=== PATIENT | female | born 1960 | race Caucasian/White ===

== ENCOUNTER 2016-11-17 10:37 | Day surgery (SDC) | payer BC ==
[~2016-11-17] VITALS: Ht 157.5 cm; Wt 47.2 kg
[~2016-11-17 10:37] MED LIST: KLONOPIN1 MG PO; LEXAPRO20 MG PO; TAMOXIFEN CITRA20 MG PO; ULTRAM50 MG PO
[2016-11-17 12:42] LABS: BASOPHILS 0.4 % (0.0-2.0); EOSINOPHILS 1.1 % (0-7); HEMATOCRIT 46.8 % (36.0-48.0); HEMOGLOBIN 16.5 g/dL (12-16); IMMATURE GRANULOCYTES 0.3 % (0-5); LYMPHOCYTES 30.2 % (15-50); MCH 33.1 pg (26.0-34.0); MCHC 35.3 g/dL (31.0-37.0); MCV 93.8 fL (80.0-100.0); MEAN PLATELET VOLUME 9.9 fL (7.4-10.4); MONOCYTES 7.7 % (2-11); NEUTROPHILS 60.3 % (40-80); PLATELET COUNT 198 10x3/uL (130-400); RBC 4.99 10x6/uL (4.00-5.40); WBC 7.5 10x3/uL (4.8-10.8)
[2016-11-17] MEDS ORDERED: KEFLEX250 MG (12:45)
[2016-11-17 12:46] LABS: CALC OSMOLALITY 283 mosm/kg (275-300); CALCIUM 9.2 mg/dL (8.5-10.1); CARBON DIOXIDE 28.3 mmol/L (21.0-32.0); CHLORIDE - SERUM 106 mmol/L (98-107); CREATININE - SERUM 0.8 mg/dL (0.6-1.3); GLUCOSE 99 mg/dL (74-106); SODIUM 143 mmol/L (136-145); UREA NITROGEN 11 mg/dL (7-18); eGFR NON AFRICAN AMERICAN 78 mL/min (90-120)
[2016-11-17 12:52] VITALS: BP 114/66; Ht 157.5 cm; Wt 47.2 kg
--- NOTE | 2016-11-17 16:15 | NUR ---
DISCHARGE INSTRUCTIONS REVIEWED WITH PATIENT, PATIENT CONTINUES AWAITING TRANSPORTATION, LYING IN BED, LOOKING AT PHONE, DENIES COMPLAINTS, PATIENT WILL CALL FOR NURSE WHEN TRANSPORTATION HAS ARRIVED
--- NOTE | 2016-11-17 17:05 | NUR ---
DISCHARGED HOME VIA WHEELCHAIR TO PRIVATE VEHICLE WITH FRIEND
--- NOTE | 2016-11-18 10:50 | OP ---
PATIENT NAME: LAINE HAMMER MEDICAL RECORD: [id number] :56 LOCATION:D[facility] ADMISSION DATE: SURGEON: EDWIN SU DO DATE OF OPERATION: 11/17/2016 PROCEDURE: EGD with biopsies. SCOPE: Olympus video gastroscope. MEDICATIONS: Propofol 150 mg IV per anesthesia. INDICATIONS FOR PROCEDURE: Dysphagia, pain provoked by eating, abnormal weight loss. FINDINGS: Informed consent was given. The patient was made comfortable with the above medication. After reaching an adequate level of sedation by slow IV push, the patient was placed on her left side. The endoscope was then advanced under direct visualization through the mouth to the second portion of the duodenum. The upper, middle and distal thirds of the esophagus appeared normal. At the GE junction, there was some evidence of mild LA class A reflux induced esophagitis. Scope was advanced through the GE junction into the stomach and retroflexed to view a small sliding hiatal hernia involving the cardia of the stomach. The body and fundus of the stomach appeared normal. The antrum appeared normal as well, but as you approached the prepyloric region there was some streaky areas of erythema and granularity consistent with gastritis. Biopsies were taken to rule out H. pylori and to submit for histology. Scope was advanced into the duodenal bulb and second portion of the duodenum, which appeared normal. Scope was withdrawn from the patient. The patient tolerated the procedure well and there were no complications. ESTIMATED BLOOD LOSS: Less than 3 cc. IMPRESSION: 1. Mild reflux esophagitis, grade A. 2. A small 3-cm sliding hiatal hernia was present. 3. Possible gastritis, consisting of erythema and granularity in the prepyloric region, biopsies taken. PLAN AND RECOMMENDATIONS: 1. Discharge home when recovery parameters are met. 2. Reflux precautions. 3. GERD diet. 4. Continue current medications. 5. Trial of Protonix 40 mg daily times 8 weeks. 6. Proceed with colonoscopy as scheduled. 7. Schedule a gastric emptying study regarding the bloating, pain with eating, and early satiety. 8. Consider a barium esophagram after workup of eating and abdominal symptoms. There were no obvious strictures or narrowings areas in the esophagus on this examination, so no interventions were performed. TRANSINT:[id number] Voice Confirmation ID: [id number] DOCUMENT ID: [id number] OPERATIVE REPORT [id number] LAINE HAMMER,EDWIN Corado DO at 1050 CC: [id number] DICTATION DATE: 11/17/16 1441 [employer] REPRESENTATIVE: 11/17/16 2347 [facility] 11/17/16 [place] [id number] [place] [id number]
== END 2016-11-17 17:10 | disposition home or self-care (01) ==
LOC: D.OPS 10:37
PROVIDERS: Anesthesiology
DX: K44.9 Diaphragmatic hernia without obstruction or gangrene (principal); K21.0 Gastro-esophageal reflux disease with esophagitis; I10 Essential (primary) hypertension; R63.4 Abnormal weight loss; R13.10 Dysphagia, unspecified; F17.200 Nicotine dependence, unspecified, uncomplicated

== ENCOUNTER 2016-11-24 08:50 | Day surgery (SDC) | payer BC ==
[~2016-11-24] VITALS: Ht 157.5 cm; Wt 47.3 kg
[~2016-11-24 08:50] MED LIST changes: +KEFLEX250 MG
[2016-11-24] MEDS ORDERED: OMEPRAZOLE20 M1 PO (10:28)
[2016-11-24 10:30] LABS: HEMATOCRIT 49.2 % (36.0-48.0); HEMOGLOBIN 17.2 g/dL (12-16); MCH 32.9 pg (26.0-34.0); MCV 94.1 fL (80.0-100.0); MEAN PLATELET VOLUME 10.3 fL (7.4-10.4); RBC 5.23 10x6/uL (4.00-5.40); RDW 12.7 % (11.5-14.5); WBC 8.6 10x3/uL (4.8-10.8)
[2016-11-24 10:33] VITALS: BP 116/74; Ht 157.5 cm; Wt 47.3 kg
[2016-11-24] MEDS ORDERED: TOPROL XL25 MG PO (10:33)
[2016-11-24] MEDS ORDERED: ANALPRAM HC 2.530 GM RC (13:07)
--- NOTE | 2016-11-24 13:45 | NUR ---
PIV DC'D WITH TIP INTACT. PATIENT STATES SHE'S FEELING MUCH BETTER, LESS PAIN, AND JUST WANTS TO GO HOME. PATIENT DRESSING IN PERSONAL CLOTHING. RX FOR ANALPRAM CALLED IN TO [facility] IN [place], TO NELLY HAN
--- NOTE | 2016-11-24 13:55 | NUR ---
DISCHARGED HOME VIA WHEELCHAIR TO PRIVATE VEHICLE WITH SISTER
[2016-11-24] MEDS ORDERED: LEVSIN/ANASP0.125 MG PO (14:09)
--- NOTE | 2016-11-25 10:00 | OP ---
PATIENT NAME: LAINE HAMMER MEDICAL RECORD: [id number] :56 LOCATION:D.[facility] ADMISSION DATE: SURGEON: EDWIN SU DO DATE OF OPERATION: 11/24/2016 PROCEDURE: Colonoscopy with hot forceps polypectomy and cold forceps biopsy. INDICATIONS: Change in bowel habits, constipation by outlet obstruction, history of colon polyps. SCOPE: Olympus video pediatric colonoscope. MEDICATIONS: Propofol IV per anesthesia. WITHDRAWAL TIME: 16 minutes. ESTIMATED BLOOD LOSS: Less than 3 cc. FINDINGS: Informed consent was given. The patient was made comfortable with the above medication by slow IV push. After reaching an adequate level of sedation, the patient was placed in the left side. A digital rectal examination was performed and found external hemorrhoids. There was no bleeding stigmata associated with this. The endoscope was then advanced under direct visualization through the anus to the terminal ileum. Scope was slowly withdrawn while the mucosa was carefully examined. There was mild diverticulosis of the descending and sigmoid colon. In the descending colon, there was a single benign appearing sessile adenomatous polyp measuring approximately 3-4 mm in size, removed with hot forceps. The polyp was completely retrieved. In the sigmoid colon, there were 3-4 hyperplastic polyps. One was removed with hot forceps and completely retrieved. The other were removed with cold forceps and completely retrieved. All of these measured approximately 2-4 mm. In the rectum, there was a single benign appearing sessile polyp measuring approximately 6 mm in size, which was removed with hot forceps. It was completely retrieved. On retroflexion in the rectum, there were medium sized internal hemorrhoids which were not bleeding. The remainder of the examination was normal. The scope was withdrawn from the patient. The patient tolerated the procedure well and there were no complications. IMPRESSION: 1. Small to medium size internal and external hemorrhoids without bleeding stigmata and no active bleeding. 2. Few benign-appearing sessile polyps in the descending, sigmoid, and rectum. These were removed with the combination of hot forceps and cold forceps polypectomy. 3. Mild diverticulosis of the descending and sigmoid colon. PLAN AND RECOMMENDATIONS: 1. Discharge home when recovery parameters are met. 2. High fiber diet. 3. Consider supplementing diet with fiber 1-2 tablespoons daily. 4. Continue MiraLax as needed for constipation. 5. We will give a script for Levsin 0.125 mg q.6 hours p.r.n. loose stools or abdominal pain. 6. Recall colonoscopy will be dependent on pathology results. 7. Follow up in GI clinic as needed. OPERATIVE REPORT [id number] HARMANLAINEJUANI JESSICA TRANSINT:[id number] Voice Confirmation ID: [id number] DOCUMENT ID: [id number] EDWIN SU DO at 1000 CC: [id number] DICTATION DATE: 11/24/16 1235 INTAKE SPECIALIST: 11/24/16 1725 [facility] 11/24/16 [place] [id number] [place] [address]
== END 2016-11-24 13:55 | disposition home or self-care (01) ==
LOC: D.OPS 08:50
PROVIDERS: Anesthesiology
DX: K59.09 Other constipation (principal); D12.4 Benign neoplasm of descending colon; D12.5 Benign neoplasm of sigmoid colon; K62.1 Rectal polyp; K57.30 Diverticulosis of large intestine without perforation or abscess without bleeding; Z01.812 Encounter for preprocedural laboratory examination; F17.200 Nicotine dependence, unspecified, uncomplicated; I10 Essential (primary) hypertension; K21.9 Gastro-esophageal reflux disease without esophagitis

== ENCOUNTER 2019-05-16 05:48 | Day surgery (SDC) | payer BC ==
[~2019-05-16] VITALS: Ht 157.5 cm; Wt 49.5 kg
[~2019-05-16 05:48] MED LIST changes: +ANALPRAM HC 2.530 GM RC; +LEVSIN/ANASP0.125 MG PO; +OMEPRAZOLE20 M1 PO; +TOPROL XL25 MG PO
[2019-05-16 06:22] LABS: BASOPHILS 0.8 % (0-2); EOSINOPHILS 3.4 % (0-7); HEMATOCRIT 48.5 % (36.0-48.0); IMMATURE GRANULOCYTES 0.4 % (0-5); LYMPHOCYTES 34.6 % (15-50); MCH 32.8 pg (26.0-34.0); MCHC 35.1 g/dL (31.0-37.0); MCV 93.6 fL (80.0-100.0); MEAN PLATELET VOLUME 9.3 fL (7.4-10.4); MONOCYTES 12.2 % (2-11); NEUTROPHILS 48.6 % (40-80); PLATELET COUNT 241 10x3/uL (130-400); RBC 5.18 10x6/uL (4.00-5.40); RDW 13.7 % (11.5-14.5); WBC 7.5 10x3/uL (4.8-10.8)
[2019-05-16 06:37] LABS: APTT 29.5 SECONDS (22.8-39.4); INR 0.94 (0.85-1.17); PROTIME 12.1 SECONDS (11.6-15.0)
[2019-05-16] MEDS ORDERED: CELEXA20 MG PO (06:43)
[2019-05-16 06:49] LABS: ANION GAP 13.5 mmol/L (8-16); CALCIUM 9.7 mg/dL (8.5-10.1); CARBON DIOXIDE 31.2 mmol/L (21.0-32.0); CREATININE - SERUM 0.9 mg/dL (0.6-1.3); POTASSIUM - SERUM 3.7 mmol/L (3.5-5.1)
[2019-05-16 06:50] VITALS: Ht 157.5 cm; Wt 49.5 kg
--- NOTE | 2019-05-16 09:14 | NUR ---
0905 IV DC'D. CATHETER TIP INTACT. NO BLEEDING AT SITE. BANDAID APPLIED.
--- NOTE | 2019-05-16 09:17 | NUR ---
0908 PT HAS TOLERATED SOFT DRINK AND ICE CREAM. WAITING ON FULL LIQUID DIET BREAKFAST TRAY. PT WISHES TO BE ABLE TO HAVE MORE FOOD BEFORE BEING DISCHARGED HOME. 12 FULL LIQUID BREAKFAST TRAY SERVED. PT DRESSED AND EATING BREAKFAST.
--- NOTE | 2019-05-18 09:54 | OP ---
PATIENT NAME: LAINE HAMMER MEDICAL RECORD: [id number] :56 LOCATION:D.[facility] ADMISSION DATE: SURGEON: EDWIN SU DO DATE OF OPERATION: 05/16/2019 PROCEDURE: EGD with biopsy. INDICATIONS FOR PROCEDURE: Dysphagia, melena, nausea. SCOPE: Olympus video gastroscope. MEDICATIONS: Propofol 120 mg IV per anesthesia. ESTIMATED BLOOD LOSS: Minimal. COMPLICATIONS: None. FINDINGS: Informed consent was given. The patient was made comfortable with the above medication. After reaching an adequate level of sedation by slow IV push, the patient was placed on her left side. The endoscope was advanced under direct visualization through the mouth to the second portion of the duodenum with ease. The entire esophagus appeared normal. There were no strictures, rings, or abnormalities. Random cold forceps biopsies were taken from the midesophagus to submit for histopathology and to rule out the presence of eosinophils. At the GE junction, there were minor changes consistent with LA class A reflux-induced esophagitis. Cold forceps, biopsies were taken at the squamocolumnar junction to submit for histopathology. The endoscope was advanced beyond the GE junction into the stomach and retroflexed to view the cardia, where a small sliding hiatal hernia was present. The gastric mucosa appeared normal. Random cold forceps biopsies were taken from the antrum and incisura to submit for histopathology and to rule out the presence of H. pylori. The endoscope was advanced beyond the pylorus into the duodenum, which appeared normal to the second portion. Cold forceps biopsies were randomly taken to submit for histopathology. The endoscope was withdrawn from the patient. The patient tolerated the procedure well and there were no complications. IMPRESSION: 1. LA class A reflux-induced esophagitis. 2. Small sliding hiatal hernia. PLAN AND RECOMMENDATIONS: 1. Discharge home when recovery parameters are met. 2. Follow up biopsy specimen results. 3. GERD diet and reflux precautions. 4. Continue current medications. 5. We will provide a prescription for omeprazole 40 mg daily for 60 days. 6. Follow up in GI clinic as scheduled. TRANSINT:[id number] Voice Confirmation ID: [id number] DOCUMENT ID: [id number] OPERATIVE REPORT [id number] LAINE HAMMER EDWIN SU DO at 0954 CC: [id number] DICTATION DATE: 05/16/19 0822 DIRECTOR WHOLESALE: 05/16/19 0927 [facility] 05/16/19 [facility] [address] [place] [address]
== END 2019-05-16 09:28 | disposition home or self-care (01) ==
LOC: D.OPS 05:48
PROVIDERS: Anesthesiology; ATTEND Internal Medicine Gastroenterology
DX: K21.0 Gastro-esophageal reflux disease with esophagitis (principal); R13.10 Dysphagia, unspecified; K92.1 Melena; R11.0 Nausea; K44.9 Diaphragmatic hernia without obstruction or gangrene

== ENCOUNTER 2019-06-20 06:58 | Day surgery (SDC) | payer BC ==
[~2019-06-20] VITALS: Ht 157.5 cm; Wt 49.5 kg
[~2019-06-20 06:58] MED LIST changes: +CELEXA20 MG PO
[2019-06-20 07:28] LABS: HEMOGLOBIN 15.3 g/dL (12-16); MCH 31.9 pg (26.0-34.0); MCV 93.9 fL (80.0-100.0); RBC 4.79 10x6/uL (4.00-5.40); RDW 13.1 % (11.5-14.5)
[2019-06-20 07:52] VITALS: Ht 157.5 cm; Wt 49.5 kg
[2019-06-20 08:13] LABS: APTT 28.3 SECONDS (22.8-39.4); INR 0.96 (0.85-1.17); PROTIME 12.3 SECONDS (11.6-15.0)
--- NOTE | 2019-06-20 09:45 | NUR ---
0942 IV DC'D. CATHETER TIP INTACT. NO BLEEDING AT SITE. BANDAID APPLIED.
--- NOTE | 2019-06-22 19:09 | OP ---
PATIENT NAME: LAINE HAMMER MEDICAL RECORD: [id number] :56 LOCATION:D.[facility] ADMISSION DATE: SURGEON: EDWIN SU DO DATE OF OPERATION: 06/20/2019 PROCEDURE: Colonoscopy with polypectomy and biopsies. INDICATIONS FOR PROCEDURE: Change in bowel habits, lower abdominal pain, diarrhea, history of colon polyps. SCOPE: Olympus video pediatric colonoscope. MEDICATIONS: Propofol 300 mg IV per anesthesia. WITHDRAWAL TIME: 21 minutes. ESTIMATED BLOOD LOSS: Minimal. COMPLICATIONS: None. FINDINGS: Informed consent was given. The patient was made comfortable with the above medication. After reaching an adequate level of sedation by slow IV push, the patient was placed on her left side. A digital rectal examination was performed and was normal other than seeing some mild external hemorrhoids. The endoscope was advanced under direct visualization through the rectum to the cecum, confirmed by the presence of the appendiceal orifice and ileocecal valve. The endoscope was slowly withdrawn. Mucosa was carefully examined. The prep quality was good. There were 2 polyps located in the ascending colon. One was a benign appearing sessile polyp that measured approximately 3 mm in diameter. It was removed using hot forceps. Also, in the ascending colon, there was a benign appearing sessile polyp that measured approximately 5-6 mm in diameter. It was removed using a hot snare in 1 piece and completely retrieved. In the rectum, there were two benign-appearing sessile polyps, which measured approximately 2-3 mm in diameter. They were both removed using a hot forceps. There was evidence of mild diverticulosis involving the sigmoid colon. Retroflexion revealed grade I internal hemorrhoids without bleeding. During this procedure, random biopsies were taken to submit for histopathology and to rule out the presence of microscopic colitis. Stool is also collected to submit for further stool studies regarding the patient's diarrhea. The endoscope was withdrawn from the patient. The patient tolerated the procedure well and there were no complications. IMPRESSION: 1. Four polyps as described above, removed using a combination of a hot snare and hot forceps. 2. Mild diverticulosis of the sigmoid colon. 3. Grade I internal hemorrhoids without bleeding. PLAN AND RECOMMENDATIONS: 1. Discharge home when recovery parameters are met. 2. Follow up biopsy specimen results and stool studies. 3. Continue current medications. 4. We will provide a prescription for cholestyramine to help bulk stools and improve diarrhea while awaiting biopsy results. 5. Follow up in GI clinic in 1 month. OPERATIVE REPORT [id number] LAINE HAMMER 6. Recall colonoscopy in 3 years based on history of polyps. TRANSINT:[id number] Voice Confirmation ID: [id number] DOCUMENT ID: [id number] EDWIN SU DO at 1909 CC: [id number] DICTATION DATE: 06/20/19904 [employer] SUPERINTENDENT: 06/20/19 0951 [facility] 06/20/19 [facility] [address] [place] [address]
== END 2019-06-20 09:57 | disposition home or self-care (01) ==
LOC: D.OPS 06:58
PROVIDERS: Anesthesiology; ATTEND Internal Medicine Gastroenterology
DX: K63.5 Polyp of colon (principal); R19.4 Change in bowel habit; R10.30 Lower abdominal pain, unspecified; R19.7 Diarrhea, unspecified; Z86.010 Personal history of colon polyps; K57.30 Diverticulosis of large intestine without perforation or abscess without bleeding; K64.0 First degree hemorrhoids; I10 Essential (primary) hypertension; I99.9 Unspecified disorder of circulatory system; I49.9 Cardiac arrhythmia, unspecified